=== PATIENT | male | born 1965 | race Caucasian/White ===

== ENCOUNTER 2016-11-19 23:27 | Emergency (ER) | payer MEDICAID ==
[2016-10-11 12:16] VITALS: BMI 30.6
[~2016-11-19 23:27] MED LIST: ABILIFY15 MG PO; ABILIFY30 MG PO; DILANTIN100 MG PO; HYDROCODONE-APA1 TAB PO; K-DUR20 MEQ PO; LISINOPRIL10 MG PO; MEDROL DOSE PACK4 MG PO; REMERON15 MG PO; RISPERDAL2 MG PO
[2016-11-20 01:35] LABS: HEMOGLOBIN 12.5 g/dL (13.5-17.5); LYMPHOCYTES 28.2 % (15-50); MCH 33.9 pg (26.0-34.0); MCHC 34.7 g/dL (31.0-37.0); MCV 97.6 fL (80.0-100.0); MEAN PLATELET VOLUME 10.5 fL (7.4-10.4); NEUTROPHILS 66.6 % (40-80); RBC 3.69 10x6/uL (4.20-6.10); RDW 14.4 % (11.5-14.5); WBC 6.1 10x3/uL (4.8-10.8)
[2016-11-20 01:35] LABS: APPEARANCE CLEAR (CLEAR); BILIRUBIN NEGATIVE (NEGATIVE); COLOR YELLOW (YELLOW); GLUCOSE NEGATIVE (NEGATIVE); KETONE NEGATIVE (NEGATIVE); LEUKOCYTE ESTERASE NEGATIVE (NEGATIVE); NITRITE NEGATIVE (NEGATIVE); PH 5.5 (5.0-6.0); PROTEIN NEGATIVE (NEGATIVE); SPECIFIC GRAVITY 1.015 (1.005-1.020); UROBILINOGEN NORMAL (NORMAL)
[2016-11-20 01:36] LABS: PLATELET COUNT 140 10x3/uL (130-400)
[2016-11-20 01:38] LABS: UDS - AMPHET NEGATIVE QUAL (NEGATIVE); UDS - BARB NEGATIVE QUAL (NEGATIVE); UDS - BENZO NEGATIVE QUAL (NEGATIVE); UDS - COCAINE NEGATIVE QUAL (NEGATIVE); UDS - METH NEGATIVE QUAL (NEGATIVE); UDS - OPIATE POSITIVE QUAL (NEGATIVE); UDS - PCP NEGATIVE QUAL (NEGATIVE); UDS - THC NEGATIVE QUAL (NEGATIVE)
[2016-11-20 01:48] LABS: ALBUMIN 3.1 g/dL (3.4-5.0); ALKALINE PHOSPHATASE 83 U/L (46-116); ALT (SGPT) 61 U/L (10-68); CALC OSMOLALITY 266 mosm/kg (275-300); CARBON DIOXIDE 27.7 mmol/L (21.0-32.0); CHLORIDE - SERUM 97 mmol/L (98-107); CREATININE - SERUM 0.8 mg/dL (0.6-1.3); GLUCOSE 96 mg/dL (74-106); POTASSIUM - SERUM 3.6 mmol/L (3.5-5.1); PROTEIN - SERUM 6.2 g/dL (6.4-8.2); SODIUM 135 mmol/L (136-145); UREA NITROGEN 5 mg/dL (7-18); eGFR NON AFRICAN AMERICAN > 90 mL/min (90-120)
== END 2016-11-20 05:25 | disposition home or self-care (01) ==
LOC: D.ER 23:27
PROVIDERS: Emergency Medicine
DX: F29 Unspecified psychosis not due to a substance or known physiological condition (principal); F22 Delusional disorders; F10.10 Alcohol abuse, uncomplicated; E72.20 Disorder of urea cycle metabolism, unspecified; R74.8 Abnormal levels of other serum enzymes; I10 Essential (primary) hypertension; F17.200 Nicotine dependence, unspecified, uncomplicated

== ENCOUNTER 2016-11-30 20:45 | Emergency (ER) | payer MEDICAID ==
[2016-10-11 12:16] VITALS: BMI 30.6
[2016-11-30 23:18] LABS: BASOPHILS 0.6 % (0.0-2.0); EOSINOPHILS 0.3 % (0-7); HEMATOCRIT 40.6 % (42.0-54.0); HEMOGLOBIN 13.5 g/dL (13.5-17.5); IMMATURE GRANULOCYTES 0.3 % (0-5); LYMPHOCYTES 26.1 % (15-50); MCH 33.5 pg (26.0-34.0); MCHC 33.3 g/dL (31.0-37.0); MCV 100.7 fL (80.0-100.0); MEAN PLATELET VOLUME 9.9 fL (7.4-10.4); MONOCYTES 8.5 % (2-11); NEUTROPHILS 64.2 % (40-80); RBC 4.03 10x6/uL (4.20-6.10); RDW 14.3 % (11.5-14.5); WBC 6.4 10x3/uL (4.8-10.8)
[2016-11-30 23:20] LABS: PLATELET COUNT 241 10x3/uL (130-400)
[2016-11-30 23:43] LABS: ALBUMIN 3.7 g/dL (3.4-5.0); ALKALINE PHOSPHATASE 86 U/L (46-116); ALT (SGPT) 71 U/L (10-68); BILIRUBIN - TOTAL 0.66 mg/dL (0.2-1.3); CALC OSMOLALITY 281 mosm/kg (275-300); CALCIUM 8.8 mg/dL (8.5-10.1); CHLORIDE - SERUM 103 mmol/L (98-107); CREATININE - SERUM 0.9 mg/dL (0.6-1.3); GLUCOSE 101 mg/dL (74-106); POTASSIUM - SERUM 3.9 mmol/L (3.5-5.1); PROTEIN - SERUM 7.1 g/dL (6.4-8.2); SODIUM 143 mmol/L (136-145); UREA NITROGEN 4 mg/dL (7-18); eGFR NON AFRICAN AMERICAN > 90 mL/min (90-120)
== END 2016-12-01 00:20 | disposition home or self-care (01) ==
LOC: D.ER 20:45
PROVIDERS: Emergency Medicine
DX: L03.032 Cellulitis of left toe (principal); I10 Essential (primary) hypertension; F17.200 Nicotine dependence, unspecified, uncomplicated; G89.18 Other acute postprocedural pain

== ENCOUNTER 2017-01-01 13:15 | Emergency (ER) | payer MEDICAID ==
[2016-10-11 12:16] VITALS: BMI 30.6
[2017-01-01 14:24] LABS: BASOPHILS 0.2 % (0.0-2.0); EOSINOPHILS 0 % (0-7); HEMATOCRIT 45.8 % (42.0-54.0); HEMOGLOBIN 15.7 g/dL (13.5-17.5); IMMATURE GRANULOCYTES 0.2 % (0-5); INR 1.05 (0.85-1.17); MCH 33.1 pg (26.0-34.0); MCHC 34.3 g/dL (31.0-37.0); MCV 96.6 fL (80.0-100.0); MEAN PLATELET VOLUME 10.5 fL (7.4-10.4); MONOCYTES 6.9 % (2-11); NEUTROPHILS 66.7 % (40-80); PROTIME 13.5 SECONDS (11.6-15.0); RBC 4.74 10x6/uL (4.20-6.10); RDW 12.9 % (11.5-14.5); WBC 5.2 10x3/uL (4.8-10.8)
[2017-01-01 14:26] LABS: PLATELET COUNT 166 10x3/uL (130-400)
[2017-01-01 14:39] LABS: ALBUMIN 3.9 g/dL (3.4-5.0); ALKALINE PHOSPHATASE 115 U/L (46-116); ALT (SGPT) 72 U/L (10-68); BILIRUBIN - TOTAL 0.59 mg/dL (0.2-1.3); CALC OSMOLALITY 271 mosm/kg (275-300); CALCIUM 8.8 mg/dL (8.5-10.1); CARBON DIOXIDE 28.1 mmol/L (21.0-32.0); CHLORIDE - SERUM 96 mmol/L (98-107); POTASSIUM - SERUM 3.8 mmol/L (3.5-5.1); PROTEIN - SERUM 7.7 g/dL (6.4-8.2); SODIUM 136 mmol/L (136-145); UREA NITROGEN 5 mg/dL (7-18); eGFR NON AFRICAN AMERICAN 83 mL/min (90-120)
[2017-01-01 14:40] LABS: GLUCOSE 154 mg/dL (74-106)
[2017-01-01 14:47] LABS: AMYLASE - SERUM 42 U/L (25-115); CREATINE KINASE 83 UL (21-232); LIPASE 134 U/L (73-393); MAGNESIUM - SERUM 1.8 mg/dL (1.8-2.4); PRO BNP 10 pg/mL (0-125)
== END 2017-01-01 17:05 | disposition home or self-care (01) ==
LOC: D.ER 13:15
PROVIDERS: Family Medicine
DX: F10.10 Alcohol abuse, uncomplicated (principal); R74.8 Abnormal levels of other serum enzymes; E72.20 Disorder of urea cycle metabolism, unspecified; F22 Delusional disorders; I10 Essential (primary) hypertension

== ENCOUNTER 2017-05-27 12:44 | Observation (INO) | payer MEDICAID ==
[~2017-05-27] VITALS: Ht 170.2 cm; Wt 86.4 kg
--- NOTE | ~2017-05-27 | HEMODYNAMI ---
PATIENT:ANYI GEORGE MEDICAL RECORD: [id number] : 63 [id number] ADMISSION DATE: 05/27/17 Generatedon:05/28/201713:35 Patient name: ANYI GEORGE Patient #: [id number] SSN: : 1965 Date of study: 05/28/2017 Page: Of Hemodynamic Procedure Report Patient Data Patient Demographics Procedure consent was obtained First Name: ANYI Gender: Male Last Name: ARIEL : 1965 [facility] Initial: L Age: 51 year(s) Patient #: [id number] Race: Unknown Additional ID: [id number] Contact details [address]: [address] [place] [address] State: [place] City: [place] Zip code: [address] Past Medical History Allergies Allergen Reaction Date Comments Reported Penicillins 05/28/2017 Other allergy 05/28/2017 haldol Admission Admission Data Admission Date: 05/27/2017 Admission Time: 15:45 Room #: D.2120 Lab Results Lab Result Date: 05/28/2017 Lab Result Time: 0:00 Biochemistry Name Units Result Min Max BUN mg/dl 6 -*(----)-- 7 18 Creatinine mg/dl 0.9 --(-*--)-- 0.6 1.3 CBC Name Units Result Min Max Hemoglobin g/dl 15.4 --(-*--)-- 13.5 17.5 Procedure Procedure Types Cath Procedure Diagnostic Procedure LHC LHC w/Coronaries PCI Procedure Coronary Stent Initial Miscellaneous Procedures Moderate Sedation up to 45 minutes Procedure Description Procedure Date Procedure Date: 05/28/2017 Procedure Start Time: 12:57 Procedure End Time: 13:27 Procedure Staff Name Function Owen Lopez MD Performing Physician Cynthia Arellano RN Nurse Mk Berman RN Rn Wellness Tony Arellano RT Scrub Arslan Horvath RT Monitor Procedure Data Cath Procedure Fluoroscopy Diagnostic fluoroscopy Total fluoroscopy Time: time: 10.7 min 10.7 min Diagnostic fluoroscopy Total fluoroscopy dose: dose: 1134 mGy 1134 mGy Contrast Material Contrast Material Type Amount (ml) Isovue 300 140 Entry Location Entry Primary Successful Side Size Upsize Upsize Entry Closure Loyd ccessful Closure Location (Fr) 1 (Fr) 2 (Fr) Remarks Device Remarks Radial Right 6 Fr Mechanical artery Short Compression Diagnostic catheters Device Type Used For End Catheter Placement Diagnostic Terumo 5Fr LV Angiography Orem 110cm catheter Procedure Complications No complications Procedure Medications Medication Administration Route Dosage Oxygen NC 3 l/min Lidocaine 2% added to field 20 Heparin Flush Bag added to field 2 bags (1000units/500ml NS) 0.9% NaCl I.V. 100 ml/hr Versed 1 mg Fentanyl I.V. 50 mcg Heparin Bolus I.V. 4000 units Versed I.V. 1 mg Fentanyl I.V. 50 mcg Radial Cocktail I.A. 1 syringe (Verapomil 2mg/Nitro 400mcg/Heparin 1500units) Hemodynamics Rest HGB: 15.4 (g/dl) Heart Rate: 57 (bpm) Snapshots Pre Cath Intra NCS Post Cath Vital Signs Time Heart Resp SPO2 etCO2 [id number] NIBP (mmHg) Rhythm Pain Sedation Rate (ipm) (%) (mmHg) (mmHg) Status Level (bpm) 12:32:33 67 14 100 0 0 128/97(109) NSR 0 (11) 10(A) , No pain 12:36:43 68 15 99 0 0 128/81(104) NSR 0 (11) 10(A) , No pain 12:40:55 65 14 99 0 0 124/81(109) NSR 0 (11) 10(A) , No pain 12:45:09 68 12 90 0 0 121/69(93) NSR 0 (11) 10(A) , No pain 12:49:19 68 13 93 0 0 118/72(93) NSR 0 (11) 10(A) , No pain 12:53:30 66 14 93 0 0 116/65(96) NSR 0 (11) 10(A) , No pain 12:57:44 61 14 93 0 0 116/63(96) NSR 0 (11) 10(A) , No pain 13:01:56 72 14 93 0 0 112/67(87) NSR 0 (11) 9(A) , No pain 13:06:06 73 14 93 0 0 117/67(96) NSR 0 (11) 9(A) , No pain 13:10:18 70 15 93 0 0 112/65(92) NSR 0 (11) 9(A) , No pain 13:14:28 69 15 93 0 0 119/66(94) NSR 0 (11) 9(A) , No pain 13:18:42 60 15 94 0 0 103/62(87) NSR 0 (11) 9(A) , No pain 13:22:50 60 15 94 0 0 105/60(83) NSR 0 (11) 9(A) , No pain 13:26:56 57 14 98 0 0 113/73(92) NSR 0 (11) 10(A) , No pain Medications Time Medication Route Dose Verified Delivered Reason Notes E ffectiveness by by 12:35:19 Oxygen NC 3 l/min Cynthia Cynthia used for Eileen Eileen research laboratory specialist RN 12:35:34 Lidocaine 2% added 20ml Cynthia Cynthia used for to vial Eileen Eileen procedure field RN RN 12:35:54 Heparin Flush added 2 bags Cynthia Cynthia used for Bag to Eileen Eileen procedure (1000units/500ml field RN RN NS) 12:36:17 0.9% NaCl I.V. 100 Cynthia Cynthia used for ml/hr Eileen Eileen research laboratory specialist RN 12:46:57 Versed 1 mg Cynthia Cynthia for Eileen Eileen sedation RN RN 12:47:04 Fentanyl I.V. 50 mcg Cynthia Cynthia for Eileen Eileen sedation RN RN 12:58:02 Radial Cocktail I.A. 1 Owen Weaver Per (Verapomil syringe John Lopez MD physician 2mg/Nitro 400mcg/Heparin 1500units) 13:04:24 Heparin Bolus I.V. 4000 Owen Marie Per verfied units John BOYD Eileen physician with RN dr. lopez 13:13:02 Versed I.V. 1 mg Cynthia Cynthia for Eileen Eileen sedation RN RN 13:13:10 Fentanyl I.V. 50 mcg Cynthia Cynthia for Eileen Eileen sedation RN forest pathology teacher Log Time Note 12:05:36 Mk Berman RN sent for patient. Start room use. 12:18:37 Time tracking: Regular hours 12:18:41 Plan of Care:Hemodynamics will remain stable., Cardiac rhythm will remain stable., Comfort level will be maintained., Respiratory function will remain adequate., Patient/ family verbilizes understanding of procedure., Procedure tolerated without complication., Recovers from procedure without complications.. 12:25:01 Patient received from PCU to CCL 1 Alert and oriented. Tansferred to table in Supine position. 12:25:02 Warm blankets applied, and becca hugger turned on for patient comfort. 12:25:02 Correct patient and procedure confirmed by team. 12:25:03 Signed procedure consent form obtained from patient. 12:25:04 ECG and BP/O2 sat monitors applied to patient. 12:31:33 Vital chart was started 12::34 Baseline sample Acquired. 12:31:39 Rhythm: sinus bradycardia 12::41 Full Disclosure recording started 12:35:03 H&P Date Dictated: 05/28/2017 Within 30 days and on chart.. 12:35:04 Pre-procedure instructions explained to patient. 12:35:05 Pre-op teaching completed and patient verbalized understanding. 12:35:06 Family unavailable. 12:35:08 Patient NPO since Midnight. 12:35:14 Patient allergic to Penicillins 12:35:19 Oxygen 3 l/min NC was administered by Cynthia Arellano RN; used for procedure; 12:35:25 Patient allergic to Other allergyhaldol 12:35:27 Is the patient allergic to Iodine/contrast media? No. 12:35:30 Is patient on blood thinner?Yes 12:35:33 ACC The patient was administered the following blood thiners within the last 24 hours: ACCPlavix 12:35:34 Lidocaine 2% 20ml vial added to field was administered by Cynthia Arellano RN; used for procedure; 12:35:54 Heparin Flush Bag (1000units/500ml NS) 2 bags added to field was administered by Cynthia Arellano RN; used for procedure; 12:36:17 0.9% NaCl 100 ml/hr I.V. was administered by Cynthia Arellano RN; used for procedure; 12:37:41 Patient diabetic? No. 12:37:42 ----Pre-sedation anethsthesia assessment.---- 12:37:45 Previous problem with sedation/anesthesia? No ? 12:37:46 Snore? Yes 12:37:48 Sleep apnea? No 12:37:50 Deviated septum? No 12:37:51 Opens mouth fully? Yes 12:37:54 Sticks out tongue? Yes 12:38:05 Airway obstruction? Yes protein buildup 12:38:08 Dentures? No ? 12:39:20 Pre procedure: right dorsailis pedis pulse 2+ Normal; easily identifiable; not easily obliterated 12:39:33 Modified Sergio's test Ulnar > 7 seconds. 12:39:36 Patient pain scale 0/10 ?. 12:39:50 IV patent on arrival in left hand with 0.9% NaCl at 10ml/hr. 12:40:15 Lab Result : BUN 6 mg/dl 12:40:15 Lab Result : Creatinine 0.9 mg/dl 12:40:15 Lab Result : Hemoglobin 15.4 g/dl 12:40:19 Lab results completed and on chart. 12:40:22 Right Radial & Right Groin area was prepped with chlora-prep and draped in sterile fashion 12:40:22 Alarms reviewed by R. N. 12:40:23 Sharps counted by scrub and verified by R.N. 12:45:58 --------ALL STOP TIME OUT------ 12:45:59 Final Timeout: patient, procedure, and site verified with staff and physician. All members of the team are in agreement. 12:46:00 Right Radial & Right Groin site verified by team. 12:46:03 Physical assessment completed. ASA score P 2 - A patient with mild systemic disease as per Owen Lopez MD. 12:46:09 Sedation plan: IV Moderate Sedation Versed, Fentanyl 12:46:23 Zero performed for pressure channel P1 12:46:26 Zero performed for pressure channel P1 12:46:29 Zero performed for pressure channel P1 12:46:33 Zero performed for pressure channel P1 12:46:35 Zero performed for pressure channel P1 12:46:49 Use device set Radial Dx 12:46:50 Acist Syringe opened to sterile field. 12:46:51 Medline Cath Pack opened to sterile field. 12:46:51 Bag Decanter opened to sterile field. 12:46:51 Terumo 6Fr Slender Glidesheath opened to sterile field. 12:46:52 [facility] Nicholas 260cm J .035 wire opened to sterile field. 12:46:52 Acist Hand Control opened to sterile field. 12:46:53 Acist Manifold opened to sterile field. 12:46:53 Tegaderm 4 x 4 opened to sterile field. 12:46:53 MBrace Wrist Support opened to sterile field. 12:46:57 Versed 1 mg was administered by Cynthia Arellano RN; for sedation; 12:47:04 Fentanyl 50 mcg I.V. was administered by Cynthia Arellano RN; for sedation; 12:57:45 Procedure started. 12:57:52 Local anesthetic to right radial artery with Lidocaine 2% by Owen Lopez MD.INITIAL ACCESS ONLY 12:57:53 A 6 Fr Short sheath was inserted into the Right Radial artery 12:58:02 Radial Cocktail (Verapomil 2mg/Nitro 400mcg/Heparin 1500units) 1 syringe I.A. was administered by Owen Lopez MD; Per physician; 12:59:52 A Diagnostic Terumo 5Fr Orem 110cm catheter was advanced over the wire and used for LV Angiography. 12:59:56 LV angiography performed. 12:59:57 LV gram done using PRASAD 13:00:35 EF : 60 % 13:00:39 Injector settings: Ml/sec: 7, Volume: 15, 13:01:10 RCA angiography performed. 13:01:34 LCA angiography performed. 13:02:17 Catheter removed. 13:02:43 iJukebox BasixCompak Inflation Kit opened to sterile field. 13:02:44 Garzon Whisper J 300cm 0.014 guide wire opened to sterile field. 13:02:54 ACC PCI Site: OM1 has 80% stenosis. 13:02:56 ACC Pre-intervention SOHEILA Flow is 3. 13:04:24 Heparin Bolus 4000 units I.V. was administered by Cynthia Arellano RN; Per physician; verfied with dr. lopez 13:05:33 Cordis 6FR XB 3.5 guide catheter opened to sterile field. 13:05:41 6 Fr XB 3.5 guide catheter was inserted over the wire 13:05:44 WHISPER wire advanced. 13:09:23 [place] Sci Choice PT Floppy J 300cm 0.014 guide wi opened to sterile field. 13:09:30 Wire removed. 13:09:35 CPTES wire advanced. 13:13:02 Versed 1 mg I.V. was administered by Cynthia Arellano RN; for sedation; 13:13:10 Fentanyl 50 mcg I.V. was administered by Cynthia Arellano RN; for sedation; 13:14:24 Garzon Whisper J 300cm 0.014 guide wire opened to sterile field. 13:14:25 Venture 6F catheter opened to sterile field. 13:14:31 Wire removed. 13:14:42 NEW WHISPER wire advanced. 13:15:38 VENTURE ADVANCED 13:22:17 Wire advanced across lesion. 13:22:18 VENTURE REMOVED 13:23:46 Inflation Number: 1 A ybuytronic Integrity 2.5 X 8 stent was prepped and advanced across the 1st Ob Sonia. The stent was deployed at 13 DEEPA for 0:13 (min:sec). 13:24:04 Stent catheter was removed intact over wire. 13:24:05 Wire removed. 13:24:06 Guide catheter removed. 13:25:34 Sheath removed intact; hemostasis achieved with Mechanical Compression to the Right Radial artery. 13:25:36 Procedure ended.(Physican Out) 13:25:55 Fluoroscopy time 10.70 minutes. 13:26:00 Fluoroscopy dose: 1134 mGy 13:26:00 Flurop Dose total: 1134 13:26:03 Contrast amount:Isovue 300 140ml. 13:26:05 Sharps counted by scrub and verified by R.N. 13:26:07 TR band inflated with 10cc of air. 13:26:12 Post right radial artery:stable 13:26:13 Post Procedure Pulses reassessed and unchanged 13:26:17 Post procedure rhythm: sinus rhythm 13:26:18 Post procedure instruction explained to patient.Patient verbalizes understanding. 13:26:30 Terumo TR Band Standard opened to sterile field. 13:26:38 Procedure type changed to Cath procedure, Diagnostic procedure, LHC, LHC w/Coronaries, PCI procedure, Coronary Stent Initial, Miscellaneous Procedures, Moderate Sedation up to 45 minutes 13:26:50 Procedure and supply charges have been captured, reviewed, submitted and are correct. 13:27:17 Procedure Complication : No complications 13:27:19 Vital chart was stopped 13:27:21 See physician's report for complete and final results. 13:27:24 Report given to PCU. 13:27:26 Patient transfered to PCU with Bed. 13:27:28 Procedure ended. 13:27:28 Full Disclosure recording stopped 13:27:31 End room use (Document Last) 13:27:35 ACC-PCI Only Patient was given prescriptions, or instructed by Owen Lopez MD to start/continue the following medications upon discharge: Plavix Intervention Summary Intervention Notes Time ActionType Lesion and Equipment Action# Pressure Duration Attributes Used 13:23:46 Place stent 1st Ob Sonia Medtronic 1 13 00:13 Integrity 2.5 X 8 stent Device Usage Item Name Manufacture Quantity Catalog Number Hospital Part Current Minim al Lot# / Charge Number Stock Stock Serial# Code Acist Acist 1 49601 577031 827251 050752 20 Syringe Medical Systems Inc Medline Cardinal 1 [id number] 391469 69730 157145 5 Cath Pack Health Bag Microtek 1 2002S 135815 52016 858371 5 DecInfoBionic Medical Inc. Terumo 6Fr Terumo 1 [id number] 186735 184886 248470 [address] [facility] 1 846179 230901 114131 693349 30 260cm J .035 wire Acist Hand Acist 1 75872 009539 247340 627115 5 Control Medical Systems Inc Acist Acist 1 09675 142358 556548 158367 5 Manifold Medical Systems Inc Tegaderm 4 3M 1 1626W 432413 118833 103195 5 x 4 MBrace Advanced 1 140-0250-00 922781 30602 110307 5 Wrist Vascular Support Dynamics Diagnostic Terumo 1 89-4072 284884 550381 763338 5 Terumo 5Fr Orem 110cm catheter Merit Merit 1 [id number] 166646 434446 851280 15 BasixCompak Medical Inflation Kit Garzon Garzon 2 [id number] 215438 185762 608722 5 Whisper J Vascular 300cm 0.014 guide wire Cordis 6FR Cardinal 1 [id number] 476181 498952 454037 2 XB 3.5 Health guide catheter [place] Sci [place] 1 [id number] 911319 830895 996200 5 [id number] Choice PT Scientific Floppy J 300cm 0.014 guide wi Venture 6F Vascular 1 5821 221595 418625 049609 1 catheter Solutions Medtronic Medtronic 1 [id number] 782442 889927 2 [id number] Integrity 2.5 X 8 stent Terumo TR Terumo 1 [id number] 766395 670144 434993 40 Band Standard Signature Audit [place] Stage Time Signature Unsigned Intra-Procedure 05/28/2017 Arslan Horvath 1:35:26 PM RT(R) Signatures Monitor : Arslan Horvath RT Signature : Date : Time : [place] [id number] [place] [address]
--- NOTE | ~2017-05-27 | OP ---
PATIENT NAME: ANYI GEORGE MEDICAL RECORD: [id number] :63 LOCATION:D.M2 D.2120 ADMISSION DATE:05/27/17 SURGEON: NORMA HILLIARD MD OPERATION DATE: 05/28/17 PROCEDURES: 1. Percutaneous transluminal coronary angioplasty stent left circumflex. 2. Left heart catheterization. 3. Selective coronary angiography. 4. Left ventriculogram. INDICATION: Unstable angina. PROCEDURE IN DETAIL: After informed consent was obtained and after detailed explanation of risks, benefits, as well as alternative therapies, the patient elected to proceed with angiogram and angioplasty. The right radial area was prepped and draped in a normal sterile fashion. The right radial artery was cannulated via modified Seldinger technique with placement of 6-Sami sheath. All catheters exchanged through this sheath. FINDINGS: Left ventriculogram was performed in standard 30 degree PRASAD view, reveals good cardiac wall motion throughout all segments. Overall ejection fraction 50%. SELECTIVE CORONARY ANGIOGRAPHY: 1. Left main showed no significant angiographic disease. 2. Left anterior descending has mild irregularities with no flow-limiting stenosis. 3. Left circumflex has a 70-80% stenosis at the first obtuse marginal. 4. The right coronary artery has mild irregularities but no flow-limiting stenosis. PTCA STENT OF THE LEFT CIRCUMFLEX: The stent used was a 2.5 X 8 millimeter Integrity. The result was 0% residual stenosis. OVERALL IMPRESSION: Successful percutaneous transluminal coronary angioplasty stent of the left circumflex going from 70-80% initial stenosis to 0% residual stenosis. NORMA HILLIARD MD CC: [id number] DICTATION DATE: 05/28/17 1400 VARIETY LATHE OPERATOR: PETROS 05/29/17 1246 DIS IN 05/29/17 [facility] [address] [place] [address]
[2017-05-27 13:34] LABS: BASOPHILS 0.5 % (0-2); EOSINOPHILS 4.2 % (0-7); HEMOGLOBIN 15.4 g/dL (13.5-17.5); IMMATURE GRANULOCYTES 0.2 % (0-5); LYMPHOCYTES 23.3 % (15-50); MCH 32.6 pg (26.0-34.0); MCHC 34.2 g/dL (31.0-37.0); MCV 95.3 fL (80.0-100.0); MEAN PLATELET VOLUME 10.5 fL (7.4-10.4); MONOCYTES 9.1 % (2-11); NEUTROPHILS 62.7 % (40-80); PLATELET COUNT 147 10x3/uL (130-400); RBC 4.72 10x6/uL (4.20-6.10); RDW 13.3 % (11.5-14.5); WBC 6.2 10x3/uL (4.8-10.8)
[2017-05-27 13:50] LABS: ALBUMIN 3.5 g/dL (3.4-5.0); ALKALINE PHOSPHATASE 84 U/L (46-116); ALT (SGPT) 44 U/L (10-68); BILIRUBIN - TOTAL 0.47 mg/dL (0.2-1.3); CALC OSMOLALITY 277 mosm/kg (275-300); CALCIUM 8.6 mg/dL (8.5-10.1); CARBON DIOXIDE 27.4 mmol/L (21.0-32.0); CHLORIDE - SERUM 103 mmol/L (98-107); CREATININE - SERUM 0.9 mg/dL (0.6-1.3); GLUCOSE 86 mg/dL (74-106); POTASSIUM - SERUM 4.1 mmol/L (3.5-5.1); PROTEIN - SERUM 7.4 g/dL (6.4-8.2); SODIUM 141 mmol/L (136-145); UREA NITROGEN 6 mg/dL (7-18); eGFR NON AFRICAN AMERICAN > 90 mL/min (90-120)
[2017-05-27 14:00] LABS: CHOL - HDL RATIO 2.1 ratio (2.3-4.9); CHOLESTEROL, TOTAL 188 mg/dL (0-200); CKMB 2.5 U/L (0.0-3.6); CREATINE KINASE 175 UL (21-232); HDL CHOLESTEROL 91 mg/dL (32-96); LDL CHOLESTEROL 88 mg/dL (0-100); TRIGLYCERIDE 45 mg/dL (30-200)
[2017-05-27 14:01] LABS: TROPONIN-I < 0.017 ng/mL (0.000-0.060)
--- NOTE | 2017-05-27 16:30 | NUR ---
TRANSFER FROM ER BY W/C. CELESTINEINTED TO ROOM. CALL LIGHT IN REACH. WILL CONT. PLAN OF CARE.
--- NOTE | 2017-05-27 16:43 | NUR ---
RECIVED FROM ER PER WC. TO ROOM 2120 . ADMIT ASSESSMENT PER RN.
[2017-05-27 17:20] VITALS: BP 127/97; Ht 170.2 cm; Wt 86.4 kg
--- NOTE | 2017-05-27 19:15 | NUR ---
INITIAL ROUNDS MADE. PT SITTING UP IN BED WATCHING TV. C/O CP, GIVEN NITRO SUBLING ORDERED. WILL MONITOR.
--- NOTE | 2017-05-27 19:25 | NUR ---
PT STATES PAIN DOWN FROM 10 TO 7. 2ND NITRO GIVEN SUBLING.
[2017-05-27 20:46] LABS: CKMB 1.5 U/L (0.0-3.6); CREATINE KINASE 125 UL (21-232)
[2017-05-27 20:47] LABS: TROPONIN-I < 0.017 ng/mL (0.000-0.060)
[2017-05-27 22:00] VITALS: BP 121/74
--- NOTE | 2017-05-27 23:40 | NUR ---
WEAPONS DESIGNER AT BEDSIDE FOR VS. NEEDS ADDRESSED AT THIS TIME. CALL LIGHT IN REACH. WILL CONT TO MONITOR.
[2017-05-28] VITALS: BP 116/74
[2017-05-28 03:08] LABS: CKMB 1.1 U/L (0.0-3.6); CREATINE KINASE 104 UL (21-232); TROPONIN-I < 0.017 ng/mL (0.000-0.060)
[2017-05-28 05:03] VITALS: BP 124/80
--- NOTE | 2017-05-28 07:30 | NUR ---
RESTING QUIETLY RESP UNLABORED NAD NOTED DENIES ANY NEEDS
[2017-05-28 08:00] VITALS: BP 122/74
--- NOTE | 2017-05-28 08:37 | NUR ---
ASSESSMENT COMPLETED.. TELEMERTY SHOWS SR. LEFT HAND SL, PATENT. DENIES ANY NEEDS. PERMIT FOR CATH SIGNED. WILL MONITOR
[2017-05-28 08:51] LABS: BASOPHILS 0.3 % (0-2); EOSINOPHILS 4.2 % (0-7); HEMATOCRIT 42.7 % (42.0-54.0); HEMOGLOBIN 14.5 g/dL (13.5-17.5); LYMPHOCYTES 37.5 % (15-50); MCH 32.5 pg (26.0-34.0); MCV 95.7 fL (80.0-100.0); MEAN PLATELET VOLUME 11.4 fL (7.4-10.4); MONOCYTES 7.3 % (2-11); NEUTROPHILS 50.7 % (40-80); PLATELET COUNT 129 10x3/uL (130-400); RBC 4.46 10x6/uL (4.20-6.10); RDW 13.4 % (11.5-14.5); WBC 5.9 10x3/uL (4.8-10.8)
[2017-05-28 09:09] LABS: CALCIUM 8.4 mg/dL (8.5-10.1); CARBON DIOXIDE 25.5 mmol/L (21.0-32.0); CHLORIDE - SERUM 101 mmol/L (98-107); CREATININE - SERUM 0.8 mg/dL (0.6-1.3); GLUCOSE 93 mg/dL (74-106); SODIUM 139 mmol/L (136-145); eGFR NON AFRICAN AMERICAN > 90 mL/min (90-120)
[2017-05-28 09:10] LABS: CALC OSMOLALITY 276 mosm/kg (275-300); POTASSIUM - SERUM 3.4 mmol/L (3.5-5.1); UREA NITROGEN 9 mg/dL (7-18)
--- NOTE | 2017-05-28 10:34 | NUR ---
AWAITING CATH. DENIES ANY NEEDS. CALL LIGHT IN REACH
[2017-05-28 12:00] VITALS: BP 140/87
--- NOTE | 2017-05-28 14:02 | NUR ---
BACK FROM PHYS THER. V/S STABLE. TELEMETRY SHOWS SB AT 57. TR BAND TO RIGHT ARM. DENIES ANY NEEDS. LUNCH SEREVED. WILL MONITOR
--- NOTE | 2017-05-28 15:03 | NUR ---
LYING QUIETLY. DENIES ANY NEEDS. CALL LIGHT IN REACH. TR BAND TO RIGHT WRIST WITH OUT BLEEDING OR SWELLING. FINGERS WARM
--- NOTE | 2017-05-28 19:00 | NUR ---
INITIAL ROUNDS MADE. PT SITTING UP IN BED WATCHING TV. DENIES NEEDS OR C/O AT THIS TIME. RT WRIST STABLE. VSS. CONT TO MONITOR.
[2017-05-28 23:00] VITALS: BP 129/79
--- NOTE | 2017-05-28 23:48 | NUR ---
RUBBER MOLDER AT BEDSIDE FOR VS. NEEDS ADDRESSED AT THIS TIME. CALL LIGHT IN REACH. WILL CONT TO MONITOR.
--- NOTE | 2017-05-29 04:46 | NUR ---
RESTING WELL WITH EYES CLOSED, CALL LIGHT IN REACH. WILL CONT TO MONITOR.
[2017-05-29 05:36] VITALS: BP 129/84
[2017-05-29 08:00] VITALS: BP 167/101
--- NOTE | 2017-05-29 08:00 | NUR ---
RECEIVED PT IN BED AAOX4 RESP UNLABORED PT DENIES ANY NEEDS OR DISCOMFORT
--- NOTE | 2017-05-29 09:05 | NUR ---
Patient Name: ANYI GEOREG Admission Status: ER Accout number: [id number] Admission Date: 05-27-2017 : 1965 Admission Diagnosis: Attending: JB Current LOS: 2 Anticipated DC Date: 05-29-2017 Planned Disposition: Home Primary Insurance: MEDICAID [place] Discharge Planning Comments: * Is the patient Alert and Oriented? Yes 0 * How many steps to enter\exit or inside your home? NONE 0 * PCP NONE 0 * Pharmacy [facility] [address] 0 * Preadmission Environment Home Alone 0 * ADLs Independent 0 * Equipment None 0 * Other Equipment NO MEDICAL EQUIPMENT PROVIDER PREFERENCE 0 * List name and contact numbers for known caregivers / representatives who currently or will assist patient after discharge: DYANA GEORGE, SPOUSE, 0 * Community resources currently utilized None 0 * Please name any agencies selected above. NONE 0 * Additional services required to return to the preadmission environment? No 0 * Can the patient safely return to the preadmission environment? Yes 0 * Has this patient been hospitalized within the prior 30 days at any hospital? No 0 CM INFORMED BY JIM SIMS THAT PT DID NOT DISCHARGE LAST NIGHT SCHEDULED. CM MET WITH PT IN ROOM WHO REPORTED THAT HE DID NOT HAVE TRANSPORTATION HOME LAST NIGHT BUT HIS BROTHER WILL BE HERE AT 0900 TODAY TO GET HIM AND TAKE HOME. PT LIVES IN HIS BROTHER'S SHOP AND HAS ELECTRICITY, RUNNING WATER AND BATHROOM ACCESS. PT HAS NO CURRENT PRIMARY DOCTOR AND NO TRANSPORTATION OF HIS OWN, DEPENDS ON OTHERS FOR TRANSPORTATION SERVICES. PT HAS NO MEDICAL EQUIPMENT AND NO PREFERRED PROVIDER. PT REPORTS FEELING SAFE AT HIS BROTHER'S SHOP. PT DENIES DISCHARGE NEEDS. CM PROVIDED AND EXPLAINED [facility] INFORMATION FOR POSSIBLE PRIMARY DOCTOR CARE AND MEDICAID TRANSPORTATION SERVICES CONTACT NUMBER. BARK TANNER NURSE NOTIFIED. Piece Hand: Imer Sharma
--- NOTE | 2017-05-29 09:25 | NUR ---
REVIEWED DISCHARGE INSTRUCTIONS WITH PT STATES UNDERSTANDING COPY GIVEN SALINE LOCK DCD TO LT HAND WITH IV CATHETER INTACT SITE FREE OF REDNESS OR EDEMA PT DISCHARGED HOME LEFT UNIT IN STABLE VIA W/C CONDITION WITH ALL PERSONAL BELONGINGS
== END 2017-05-29 09:25 | disposition home or self-care (01) ==
LOC: D.ER 12:44 → D.M2 15:45 → OBSVTIME 15:45 → D.M2 15:45
PROVIDERS: Emergency Medicine; ADMIT Internal Medicine Interventional Cardiology
DX: I25.110 Atherosclerotic heart disease of native coronary artery with unstable angina pectoris (principal); J44.9 Chronic obstructive pulmonary disease, unspecified; I10 Essential (primary) hypertension; F20.9 Schizophrenia, unspecified; F17.200 Nicotine dependence, unspecified, uncomplicated

== ENCOUNTER 2017-09-08 10:13 | Emergency (ER) | payer MEDICAID ==
[2017-05-27 17:20] VITALS: BMI 29.8
== END 2017-09-08 11:35 | disposition home or self-care (01) ==
LOC: D.ER 10:13
DX: S49.92XA Unspecified injury of left shoulder and upper arm, initial encounter (principal); X50.0XXA Overexertion from strenuous movement or load, initial encounter; Y93.89 Activity, other specified; Y92.029 Unspecified place in mobile home as the place of occurrence of the external cause; M79.602 Pain in left arm; S53.402A Unspecified sprain of left elbow, initial encounter; I10 Essential (primary) hypertension

== ENCOUNTER 2018-10-12 00:29 | Emergency (ER) | payer MEDICARE ==
[~2018-10-12] VITALS: Ht 170.2 cm; Wt 90.9 kg
[2018-10-12 00:31] VITALS: Ht 170.2 cm; Wt 90.9 kg
[2018-10-12 02:03] LABS: APPEARANCE CLEAR (CLEAR); BILIRUBIN NEGATIVE (NEGATIVE); COLOR YELLOW (YELLOW); GLUCOSE NEGATIVE (NEGATIVE); KETONE NEGATIVE (NEGATIVE); NITRITE NEGATIVE (NEGATIVE); PROTEIN NEGATIVE (NEGATIVE); UROBILINOGEN NORMAL (NORMAL)
[2018-10-12 02:30] LABS: BASOPHILS 0.1 % (0-2); EOSINOPHILS 0.4 % (0-7); HEMATOCRIT 41.8 % (42.0-54.0); HEMOGLOBIN 14.5 g/dL (13.5-17.5); IMMATURE GRANULOCYTES 0.2 % (0-5); LYMPHOCYTES 12.1 % (15-50); MCH 31.9 pg (26.0-34.0); MCHC 34.7 g/dL (31.0-37.0); MCV 92.1 fL (80.0-100.0); MEAN PLATELET VOLUME 10.7 fL (7.4-10.4); MONOCYTES 4.3 % (2-11); NEUTROPHILS 82.9 % (40-80); PLATELET COUNT 163 10x3/uL (130-400); RBC 4.54 10x6/uL (4.20-6.10); RDW 14.9 % (11.5-14.5); WBC 8.4 10x3/uL (4.8-10.8)
[2018-10-12 02:43] LABS: ALBUMIN 3.6 g/dL (3.4-5.0); ALKALINE PHOSPHATASE 40 U/L (46-116); ALT (SGPT) 17 U/L (10-68); BILIRUBIN - TOTAL 0.23 mg/dL (0.2-1.3); CALC OSMOLALITY 280 mosm/kg (275-300); CALCIUM 8.5 mg/dL (8.5-10.1); CARBON DIOXIDE 27.3 mmol/L (21.0-32.0); CHLORIDE - SERUM 106 mmol/L (98-107); CREATININE - SERUM 0.7 mg/dL (0.6-1.3); GLUCOSE 121 mg/dL (74-106); POTASSIUM - SERUM 2.8 mmol/L (3.5-5.1); PROTEIN - SERUM 6.8 g/dL (6.4-8.2); SODIUM 141 mmol/L (136-145); UREA NITROGEN 9 mg/dL (7-18); eGFR NON AFRICAN AMERICAN > 90 mL/min (90-120)
[2018-10-12] MEDS ORDERED: TORADOL10 MG PO (02:53)
[2018-10-12 04:32] VITALS: BP 160/80
== END 2018-10-12 04:31 | disposition home or self-care (01) ==
LOC: D.ER 00:29
PROVIDERS: Family Medicine
DX: E87.6 Hypokalemia (principal); G40.909 Epilepsy, unspecified, not intractable, without status epilepticus; Z87.820 Personal history of traumatic brain injury; J44.9 Chronic obstructive pulmonary disease, unspecified

== ENCOUNTER 2019-05-25 02:32 | Emergency (ER) | payer OTHER, MEDICARE ==
[~2019-05-25 02:32] MED LIST changes: +TORADOL10 MG PO
[2019-05-25 02:36] VITALS: Ht 170.2 cm
[2019-05-25 02:55] LABS: BASOPHILS 0.2 % (0-2); EOSINOPHILS 0.1 % (0-7); HEMATOCRIT 41.5 % (42.0-54.0); HEMOGLOBIN 14.7 g/dL (13.5-17.5); IMMATURE GRANULOCYTES 0.3 % (0-5); LYMPHOCYTES 14.3 % (15-50); MCH 32.3 pg (26.0-34.0); MCHC 35.4 g/dL (31.0-37.0); MCV 91.2 fL (80.0-100.0); MEAN PLATELET VOLUME 9.5 fL (7.4-10.4); MONOCYTES 8.4 % (2-11); NEUTROPHILS 76.7 % (40-80); RBC 4.55 10x6/uL (4.20-6.10); RDW 13.7 % (11.5-14.5); WBC 11.4 10x3/uL (4.8-10.8)
[2019-05-25 02:56] LABS: PLATELET COUNT 196 10x3/uL (130-400)
[2019-05-25 03:08] LABS: APTT 28.2 SECONDS (22.8-39.4); INR 1.09 (0.85-1.17); PROTIME 13.6 SECONDS (11.6-15.0)
[2019-05-25 03:10] LABS: ALBUMIN 4.4 g/dL (3.4-5.0); ALKALINE PHOSPHATASE 52 U/L (46-116); ALT (SGPT) 33 U/L (10-68); BILIRUBIN - TOTAL 0.74 mg/dL (0.2-1.3); CALC OSMOLALITY 286 mosm/kg (275-300); CALCIUM 9.4 mg/dL (8.5-10.1); CARBON DIOXIDE 26.6 mmol/L (21.0-32.0); CHLORIDE - SERUM 103 mmol/L (98-107); CREATININE - SERUM 1.1 mg/dL (0.6-1.3); GLUCOSE 103 mg/dL (74-106); POTASSIUM - SERUM 3.3 mmol/L (3.5-5.1); PROTEIN - SERUM 7.4 g/dL (6.4-8.2); SODIUM 143 mmol/L (136-145); UREA NITROGEN 19 mg/dL (7-18); eGFR NON AFRICAN AMERICAN 74 mL/min (90-120)
[2019-05-25 03:22] LABS: CKMB 8.3 U/L (0.0-3.6); CREATINE KINASE 473 UL (21-232); TROPONIN-I < 0.017 ng/mL (0.000-0.060)
[2019-05-25] MEDS ORDERED: NORVASC5 MG PO (05:06)
[2019-05-25] MEDS ORDERED: TOPROL XL100 MG PO (05:06)
[2019-05-25] MEDS ORDERED: KEFLEX500 MG PO (05:08)
[2019-05-25 06:29] VITALS: BP 168/97
== END 2019-05-25 06:28 | disposition home or self-care (01) ==
LOC: D.ER 02:32
PROVIDERS: Emergency Medicine
DX: I10 Essential (primary) hypertension (principal); R00.0 Tachycardia, unspecified

== ENCOUNTER 2019-05-29 07:50 | Emergency (ER) | payer OTHER, MEDICARE ==
[~2019-05-29] VITALS: Ht 170.2 cm; Wt 79.7 kg
[~2019-05-29 07:50] MED LIST changes: +KEFLEX500 MG PO; +NORVASC5 MG PO; +TOPROL XL100 MG PO
[2019-05-29 07:54] VITALS: Ht 170.2 cm; Wt 79.7 kg
[2019-05-29] MEDS ORDERED: MEDROL DOSE PACK4 MG PO (09:48)
[2019-05-29 10:10] VITALS: BP 168/89
== END 2019-05-29 10:04 | disposition home or self-care (01) ==
LOC: D.ER 07:50
DX: L24.7 Irritant contact dermatitis due to plants, except food (principal)

== ENCOUNTER 2020-02-17 13:19 | Inpatient (IN) | payer MEDICARE ==
[~2020-02-17] VITALS: Ht 170.2 cm; Wt 78.6 kg
[2020-02-17] VITALS (8 sets, daily range): BP systolic 146–156; BP diastolic 91–96; Ht 170.2 cm; Wt 78.6 kg
[2020-02-17 13:43] LABS: BASOPHILS 0.1 % (0-2); EOSINOPHILS 1.2 % (0-7); HEMATOCRIT 44.7 % (42.0-54.0); HEMOGLOBIN 15.2 g/dL (13.5-17.5); IMMATURE GRANULOCYTES 0.1 % (0-5); LYMPHOCYTES 27.6 % (15-50); MCH 31.7 pg (26.0-34.0); MCV 93.3 fL (80.0-100.0); MEAN PLATELET VOLUME 9.7 fL (7.4-10.4); MONOCYTES 8.4 % (2-11); NEUTROPHILS 62.6 % (40-80); PLATELET COUNT 214 10x3/uL (130-400); RBC 4.79 10x6/uL (4.20-6.10); RDW 13.4 % (11.5-14.5); WBC 7.4 10x3/uL (4.8-10.8)
[2020-02-17 13:58] LABS: ACETAMINOPHEN 0.5 ug/mL (10.0-30.0); ALBUMIN 4.3 g/dL (3.4-5.0); ALKALINE PHOSPHATASE 49 U/L (30-120); ALT (SGPT) 30 U/L (10-68); BILIRUBIN - TOTAL 0.44 mg/dL (0.2-1.3); CALC OSMOLALITY 272 mosm/kg (275-300); CALCIUM 8.5 mg/dL (8.5-10.1); CARBON DIOXIDE 26.3 mmol/L (21.0-32.0); CHLORIDE - SERUM 97 mmol/L (98-107); CREATININE - SERUM 0.8 mg/dL (0.6-1.3); GLUCOSE 122 mg/dL (74-106); MAGNESIUM - SERUM 2.4 mg/dL (1.8-2.4); PROTEIN - SERUM 7.4 g/dL (6.4-8.2); SODIUM 135 mmol/L (136-145); UREA NITROGEN 17 mg/dL (7-18); eGFR NON AFRICAN AMERICAN > 90 mL/min (90-120)
[2020-02-17 15:06] LABS: BILIRUBIN NEGATIVE (NEGATIVE); GLUCOSE NEGATIVE (NEGATIVE); KETONE NEGATIVE (NEGATIVE); NITRITE NEGATIVE (NEGATIVE); SPECIFIC GRAVITY 1.025 (1.005-1.020); UROBILINOGEN NORMAL (NORMAL)
[2020-02-17 15:07] LABS: UDS - AMPHET POSITIVE QUAL (NEGATIVE); UDS - BARB NEGATIVE QUAL (NEGATIVE); UDS - BENZO NEGATIVE QUAL (NEGATIVE); UDS - COCAINE NEGATIVE QUAL (NEGATIVE); UDS - OPIATE NEGATIVE QUAL (NEGATIVE); UDS - PCP NEGATIVE QUAL (NEGATIVE); UDS - THC NEGATIVE QUAL (NEGATIVE)
[2020-02-17 17:32] LABS: CKMB 12.3 U/L (0.0-3.6); CREATINE KINASE 391 UL (21-232); MAGNESIUM - SERUM 2.7 mg/dL (1.8-2.4); TROPONIN-I 0.026 ng/mL (0.000-0.060)
[2020-02-17 22:54] LABS: CKMB 10.5 U/L (0.0-3.6); CREATINE KINASE 313 UL (21-232); TROPONIN-I < 0.017 ng/mL (0.000-0.060)
[2020-02-18] VITALS (15 sets, daily range): BP systolic 96–160; BP diastolic 62–95
[2020-02-18 04:12] LABS: BASOPHILS 0.1 % (0-2); EOSINOPHILS 2.2 % (0-7); HEMATOCRIT 43.8 % (42.0-54.0); HEMOGLOBIN 14.5 g/dL (13.5-17.5); IMMATURE GRANULOCYTES 0.3 % (0-5); LYMPHOCYTES 26.5 % (15-50); MCH 31.1 pg (26.0-34.0); MCHC 33.1 g/dL (31.0-37.0); MEAN PLATELET VOLUME 10.1 fL (7.4-10.4); MONOCYTES 7.2 % (2-11); NEUTROPHILS 63.7 % (40-80); PLATELET COUNT 204 10x3/uL (130-400); RBC 4.66 10x6/uL (4.20-6.10); RDW 13.5 % (11.5-14.5); WBC 7.4 10x3/uL (4.8-10.8)
[2020-02-18 04:28] LABS: ALBUMIN 3.8 g/dL (3.4-5.0); ALKALINE PHOSPHATASE 49 U/L (30-120); ALT (SGPT) 32 U/L (10-68); CALCIUM 8.1 mg/dL (8.5-10.1); CARBON DIOXIDE 30.5 mmol/L (21.0-32.0); CHLORIDE - SERUM 103 mmol/L (98-107); CKMB 7.9 U/L (0.0-3.6); CREATINE KINASE 246 UL (21-232); CREATININE - SERUM 0.9 mg/dL (0.6-1.3); MAGNESIUM - SERUM 2.8 mg/dL (1.8-2.4); POTASSIUM - SERUM 3.1 mmol/L (3.5-5.1); PROTEIN - SERUM 6.9 g/dL (6.4-8.2); SODIUM 140 mmol/L (136-145); TROPONIN-I < 0.017 ng/mL (0.000-0.060); eGFR NON AFRICAN AMERICAN > 90 mL/min (90-120)
[2020-02-18 04:30] LABS: CALC OSMOLALITY 276 mosm/kg (275-300); GLUCOSE 71 mg/dL (74-106); UREA NITROGEN 12 mg/dL (7-18)
--- NOTE | 2020-02-18 10:19 | MORECARE ---
CASE MANAGEMENT DISCHARGE SUMMARY PATIENT: ANYI GEORGE UNIT: [id number] ADM DATE: 02/17/20 AGE: 54 : 63 SEX: M ROOM/BED: D.2306 AUTHOR: ROGER JUNE PHYSICIAN: REFERRING PHYSICIAN: NINO CORREA MD DATE OF SERVICE: 02/18/20 Discharge Plan Patient Name: ANYI GEORGE Facility: [facility]:[place] : 1965 Planned Disposition: Anticipated Discharge Date: Discharge Date: Expected LOS: Initial Reviewer: [email or web address] Initial Review Date: 02/17/2020 Generated: 02/18/20 11:19 am Patient Name: ANYI GEORGE Page 78158 at 1019 All edits/amendments must be made on the electronic document DICTATION DATE: 02/18/20 1019 DIRECTOR BEHAVIORAL HEALTH: PETROS 02/18/20 1019 RPT#: [id number] DC DATE: STATUS: ADM IN [facility] [address] [place] [address] END OF REPORT
[2020-02-19 05:35] LABS: BASOPHILS 0.2 % (0-2); EOSINOPHILS 2.2 % (0-7); HEMATOCRIT 43.3 % (42.0-54.0); HEMOGLOBIN 14.1 g/dL (13.5-17.5); IMMATURE GRANULOCYTES 0.2 % (0-5); LYMPHOCYTES 36.9 % (15-50); MCH 31.2 pg (26.0-34.0); MCHC 32.6 g/dL (31.0-37.0); MCV 95.8 fL (80.0-100.0); MONOCYTES 7.9 % (2-11); NEUTROPHILS 52.6 % (40-80); PLATELET COUNT 172 10x3/uL (130-400); RBC 4.52 10x6/uL (4.20-6.10); RDW 13.8 % (11.5-14.5)
[2020-02-19 05:56] LABS: CALC OSMOLALITY 277 mosm/kg (275-300); CALCIUM 8.1 mg/dL (8.5-10.1); CARBON DIOXIDE 26.2 mmol/L (21.0-32.0); CHLORIDE - SERUM 105 mmol/L (98-107); CREATININE - SERUM 0.9 mg/dL (0.6-1.3); GLUCOSE 77 mg/dL (74-106); MAGNESIUM - SERUM 2.3 mg/dL (1.8-2.4); SODIUM 140 mmol/L (136-145); UREA NITROGEN 13 mg/dL (7-18); eGFR NON AFRICAN AMERICAN > 90 mL/min (90-120)
[2020-02-19 06:07] LABS: POTASSIUM - SERUM 3.2 mmol/L (3.5-5.1)
[2020-02-19 07:57] VITALS: BP 163/85
--- NOTE | 2020-02-19 10:37 | MORECARE ---
CASE MANAGEMENT DISCHARGE SUMMARY PATIENT: ANYI GEORGE UNIT: [id number] ADM DATE: 02/18/20 AGE: 54 : 63 SEX: M ROOM/BED: D.2237 AUTHOR: ROGER JUNE PHYSICIAN: REFERRING PHYSICIAN: NINO CORREA MD DATE OF SERVICE: 02/19/20 Discharge Plan Patient Name: ANYI GEORGE Facility: [facility]:[place] : 1965 Planned Disposition: Home Anticipated Discharge Date: Discharge Date: Expected LOS: Initial Reviewer: [email or web address] Initial Review Date: 02/17/2020 Generated: 02/19/20 11:36 am Last DP export: 02/18/20 9:19 am Patient Name: ANYI GEORGE Page [phone] at 1037 All edits/amendments must be made on the electronic document DICTATION DATE: 02/19/20 1036 DISTRIBUTION OPERATION SUPERVISOR: DM 02/19/20 1036 RPT#: [id number] DC DATE: STATUS: ADM IN [facility] [address] [place] [address] END OF REPORT
--- NOTE | 2020-02-19 10:44 | MORECARE ---
CASE MANAGEMENT DISCHARGE SUMMARY PATIENT: ANYI GEORGE UNIT: [id number] ADM DATE: 02/18/20 AGE: 54 : 63 SEX: M ROOM/BED: D.2237 AUTHOR: SLADE,DOC PHYSICIAN: REFERRING PHYSICIAN: NINO CORREA MD DATE OF SERVICE: 02/19/20 Discharge Plan Patient Name: ANYI GEORGE Facility: [facility]:[place] : 1965 Planned Disposition: Home Anticipated Discharge Date: Discharge Date: Expected LOS: Initial Reviewer: [email or web address] Initial Review Date: 02/17/2020 Generated: 02/19/20 11:43 am Comments DCP- Discharge Planning Updated by [email or web address]: Imer Sharma on 02/19/20 9:[address] Patient Name: ANYI GEORGE Admission Status: ER Accout number: [id number] Admission Date: 02-18-2020 : 1965 Admission Diagnosis:HYPOKALEMIA Attending: NEELA Current LOS: 1 Anticipated DC Date: Planned Disposition: Home Primary Insurance: MEDICARE PART A ONLY Discharge Planning Comments: CM MET WITH PT IN ROOM TO DISCUSS DISCHARGE PLANNING AND NEEDS. PT REPORTS LIVING IN A TRAILOR INDEPENDENTLY AND ALONE; THE TRAILOR IS LOCATED BEHIND HIS BROTHER'S SHOP. PT REPROTS HAVING ELECTRIC AND WATER SERVICES AT HIS TRAILOR. PT HAS NO MEDICAL EQUIPMENT AND NO OUTSIDE SERVICES ASSISTING IN THE HOME. CM DISCUSSED ALCOHOL AND DRUG USE. PT DENIES BOTH. CM EXPLAINED POSITIVE TOXICOLOGY, PT DOES NOT REMEMBER USING DRUGS AND STATES HE STOPPED DRINKING SOME TIME AGO. PT STATES HE IS TRYING TO GET HIS LIFE TOGETHER BECAUSE HE HAS KIDS TO RAISE. PT REPORTS THAT HIS EX MOVED OUT OF STATE WITH HIS CHILDREN. CM DISCUSSED AVAILABILITY OF HOME HEALTH, REHAB SERVICES AND MEDICAL EQUIPMENT. PT DENIES DISCHARGE NEEDS, REPORTS HE WILL TRY TO GET HIS BROTHER TO PICK HIM UP FOR DISCHARGE HOME; HE HAS NO OTHER PERSON TO CALL FOR ASSISTANCE WITH TRANSPORTATION. PT PLANS TO DISCHARGE HOME ALONE, DENIES DISCHARGE NEEDS AT THIS TIME. PT DENIES DRUG OR ALCOHOL ADDICTION, DENIES USE OF BOTH DESPITE POSITIVE RESULTS UPON HOSPITAL ADMISSION. PT WILL TRY TO CALL HIS BROTHER TO PICK HIM UP AT DISCHARGE. CM TO FOLLOW AND ASSIST IF NEEDED. Geriatric Physical Therapist: Imer Sharma DCPIA - Discharge Planning Initial Assessment Updated by [email or web address]: Imer Sharma on 02/19/20 10:37 am * Is the patient Alert and Oriented? Yes * How many steps to enter\exit or inside your home? * PCP DR. MARK AVELAR * Pharmacy [facility] * Preadmission Environment Home Alone * ADLs Independent * Equipment None * Other Equipment NO MEDICAL EQUIPMENT PROVIDER PREFERNCE * List name and contact numbers for known caregivers / representatives who currently or will assist patient after discharge: BROTHER PEREZ, * Verbal permission to speak to the caregivers and representatives has been obtained from the patient. N/A * Community resources currently utilized None * Please name any agencies selected above. NONE * Additional services required to return to the preadmission environment? No * Can the patient safely return to the preadmission environment? Yes * Has this patient been hospitalized within the prior 30 days at any hospital? No Last DP export: 02/19/20 9:37 am Patient Name: ANYI GEORGE Page [id number] at 1044 All edits/amendments must be made on the electronic document DICTATION DATE: 02/19/20 104 ASIC ENGINEER: PETROS 02/19/201042 RPT#: [id number] MS DATE: STATUS: ADM IN [facility] [address] [place] [address] END OF REPORT
[2020-02-19] MEDS ORDERED: K-DUR20 MEQ PO (10:57)
[2020-02-19] MEDS ORDERED: FOLIC ACID1 MG PO (10:58)
[2020-02-19] MEDS ORDERED: VITAMIN B-1100 M1 PO (10:58)
--- NOTE | 2020-02-19 13:51 | MORECARE ---
CASE MANAGEMENT DISCHARGE SUMMARY PATIENT: ANYI GEORGE UNIT: [id number] ADM DATE: 02/18/20 AGE: 54 : 63 SEX: M ROOM/BED: D.2237 AUTHOR: SLADE,DOC PHYSICIAN: REFERRING PHYSICIAN: NINO CORREA MD DATE OF SERVICE: 02/19/20 Discharge Plan Patient Name: ANYI GEORGE Facility: [facility]:[place] : 1965 Planned Disposition: Home Anticipated Discharge Date: Discharge Date: 02/19/2020 Expected LOS: Initial Reviewer: [email or web address] Initial Review Date: 02/17/2020 Generated: 02/19/20 2:50 pm Comments DCP- Discharge Planning Updated by [email or web address]: Imer Sharma on 02/19/20 9:[address] Patient Name: ANYI GEORGE Admission Status: ER Accout number: [id number] Admission Date: 02-18-2020 : 1965 Admission Diagnosis:HYPOKALEMIA Attending: NEELA Current LOS: 1 Anticipated DC Date: Planned Disposition: Home Primary Insurance: MEDICARE PART A ONLY Discharge Planning Comments: CM MET WITH PT IN ROOM TO DISCUSS DISCHARGE PLANNING AND NEEDS. PT REPORTS LIVING IN A TRAILOR INDEPENDENTLY AND ALONE; THE TRAILOR IS LOCATED BEHIND HIS BROTHER'S SHOP. PT REPROTS HAVING ELECTRIC AND WATER SERVICES AT HIS TRAILOR. PT HAS NO MEDICAL EQUIPMENT AND NO OUTSIDE SERVICES ASSISTING IN THE HOME. CM DISCUSSED ALCOHOL AND DRUG USE. PT DENIES BOTH. CM EXPLAINED POSITIVE TOXICOLOGY, PT DOES NOT REMEMBER USING DRUGS AND STATES HE STOPPED DRINKING SOME TIME AGO. PT STATES HE IS TRYING TO GET HIS LIFE TOGETHER BECAUSE HE HAS KIDS TO RAISE. PT REPORTS THAT HIS EX MOVED OUT OF STATE WITH HIS CHILDREN. CM DISCUSSED AVAILABILITY OF HOME HEALTH, REHAB SERVICES AND MEDICAL EQUIPMENT. PT DENIES DISCHARGE NEEDS, REPORTS HE WILL TRY TO GET HIS BROTHER TO PICK HIM UP FOR DISCHARGE HOME; HE HAS NO OTHER PERSON TO CALL FOR ASSISTANCE WITH TRANSPORTATION. PT PLANS TO DISCHARGE HOME ALONE, DENIES DISCHARGE NEEDS AT THIS TIME. PT DENIES DRUG OR ALCOHOL ADDICTION, DENIES USE OF BOTH DESPITE POSITIVE RESULTS UPON HOSPITAL ADMISSION. PT WILL TRY TO CALL HIS BROTHER TO PICK HIM UP AT DISCHARGE. CM TO FOLLOW AND ASSIST IF NEEDED. Working Manager: Imer Sharma DCPIA - Discharge Planning Initial Assessment Updated by [email or web address]: Imer Sharma on 02/19/20 10:37 am * Is the patient Alert and Oriented? Yes * How many steps to enter\exit or inside your home? * PCP DR. MARK AVELAR * Pharmacy [facility] * Preadmission Environment Home Alone * ADLs Independent * Equipment None * Other Equipment NO MEDICAL EQUIPMENT PROVIDER PREFERNCE * List name and contact numbers for known caregivers / representatives who currently or will assist patient after discharge: JENNIFER GEORGE BROTHER, * Verbal permission to speak to the caregivers and representatives has been obtained from the patient. N/A * Community resources currently utilized None * Please name any agencies selected above. NONE * Additional services required to return to the preadmission environment? No * Can the patient safely return to the preadmission environment? Yes * Has this patient been hospitalized within the prior 30 days at any hospital? No Last DP export: 02/19/20 9:44 am Patient Name: ANYI GEORGE Page [id number] at 1351 All edits/amendments must be made on the electronic document DICTATION DATE: 02/19/20 1350 BATTERY SERVICE TECHNICIAN: PETROS 02/19/20 1350 RPT#: [id number] DC DATE:02/19/20 STATUS: DIS IN [facility] [id number] [place] [address] END OF REPORT
== END 2020-02-19 12:24 | disposition home or self-care (01) | DRG 640 ==
LOC: D.ER 13:19 → D.ICU 15:50 → OBSVTIME 16:18 → D.ICU 02-18 12:45 → D.MS 02-18 12:45
PROVIDERS: Family Medicine; ADMIT Family Medicine; ATTEND Family Medicine
DX: E87.6 Hypokalemia (principal); G93.41 Metabolic encephalopathy; F17.203 Nicotine dependence unspecified, with withdrawal; E87.1 Hypo-osmolality and hyponatremia; F10.129 Alcohol abuse with intoxication, unspecified; F15.10 Other stimulant abuse, uncomplicated

== ENCOUNTER 2020-03-07 15:43 | Emergency (ER) | payer MEDICARE ==
[~2020-03-07] VITALS: Ht 170.2 cm; Wt 79.5 kg
[~2020-03-07 15:43] MED LIST changes: +FOLIC ACID1 MG PO; +VITAMIN B-1100 M1 PO
[2020-03-07 15:44] VITALS: Ht 170.2 cm; Wt 79.5 kg
[2020-03-07 16:50] LABS: BASOPHILS 0.3 % (0-2); EOSINOPHILS 0.6 % (0-7); HEMOGLOBIN 14.2 g/dL (13.5-17.5); IMMATURE GRANULOCYTES 0.1 % (0-5); LYMPHOCYTES 27.3 % (15-50); MCH 31.4 pg (26.0-34.0); MCV 95.1 fL (80.0-100.0); MEAN PLATELET VOLUME 9.9 fL (7.4-10.4); MONOCYTES 5.9 % (2-11); NEUTROPHILS 65.8 % (40-80); PLATELET COUNT 197 10x3/uL (130-400); RBC 4.52 10x6/uL (4.20-6.10); RDW 13.7 % (11.5-14.5); WBC 6.8 10x3/uL (4.8-10.8)
[2020-03-07 16:59] LABS: INR 1.01 (0.85-1.17); PROTIME 13.2 SECONDS (11.6-15.0)
[2020-03-07 17:09] LABS: BILIRUBIN NEGATIVE (NEGATIVE); GLUCOSE 250 mg/dL (NEGATIVE); KETONE NEGATIVE (NEGATIVE); NITRITE NEGATIVE (NEGATIVE); UROBILINOGEN NORMAL (NORMAL)
[2020-03-07 17:13] LABS: CALC OSMOLALITY 281 mosm/kg (275-300); CALCIUM 8.6 mg/dL (8.5-10.1); CARBON DIOXIDE 30.4 mmol/L (21.0-32.0); CHLORIDE - SERUM 101 mmol/L (98-107); CREATININE - SERUM 0.9 mg/dL (0.6-1.3); POTASSIUM - SERUM 3.3 mmol/L (3.5-5.1); SODIUM 137 mmol/L (136-145); UREA NITROGEN 10 mg/dL (7-18); eGFR NON AFRICAN AMERICAN > 90 mL/min (90-120)
[2020-03-07 17:14] LABS: GLUCOSE 264 mg/dL (74-106)
[2020-03-07 17:16] LABS: UDS - AMPHET NEGATIVE QUAL (NEGATIVE); UDS - BARB NEGATIVE QUAL (NEGATIVE); UDS - BENZO NEGATIVE QUAL (NEGATIVE); UDS - COCAINE NEGATIVE QUAL (NEGATIVE); UDS - OPIATE NEGATIVE QUAL (NEGATIVE); UDS - PCP NEGATIVE QUAL (NEGATIVE); UDS - THC POSITIVE QUAL (NEGATIVE)
[2020-03-07 17:31] LABS: ALBUMIN 4.1 g/dL (3.4-5.0); ALKALINE PHOSPHATASE 52 U/L (30-120); ALT (SGPT) 41 U/L (10-68); BILIRUBIN - TOTAL 0.88 mg/dL (0.2-1.3); CKMB 4.5 U/L (0.0-3.6); CREATINE KINASE 219 UL (21-232); THYROID STIMULATING HORMONE 0.43 uIU/mL (0.36-3.74)
[2020-03-07 17:32] LABS: TROPONIN-I < 0.017 ng/mL (0.000-0.060)
[2020-03-07 18:32] VITALS: BP 169/94
== END 2020-03-07 19:40 | disposition home or self-care (01) ==
LOC: D.ER 15:43
PROVIDERS: Family Medicine
DX: E16.2 Hypoglycemia, unspecified (principal); R41.82 Altered mental status, unspecified; R42 Dizziness and giddiness